=== PATIENT | male | born 1940 | race Caucasian/White ===

== ENCOUNTER 2020-05-04 07:38 | Emergency (ER) | payer MEDICARE, MEDICAID, SELFPAY ==
[2020-05-04 07:38] VITALS: BP 149/74; PULSE 67; RESP 17; TEMP 36.7; O2SAT 99; BMI 26.6
--- NOTE | 2020-05-04 08:02 | HMH.EDWNDL ---
ED Disposition Clinical Impression: Varicocele Disposition: Home, Self-Care Condition on Discharge: Good Instructions: DI for Laceration Repair -- Simple Additional Instructions: suture out in a few days Referrals: PCP,Mary [Primary Care Provider] - - Critical Care Critical Care Time: No Attestation: On 05/04/20, the high probability of a clinically significant, sudden or life threatening deterioration of the following system(s) required my full and direct attention, intervention and personal management. The time I documented below is in addition to time spent performing reported procedures but includes the following listed in this critical care notation. Medical Decision Making - Medical Records Medical records reviewed: Yes: I reviewed the patient's medical records. - Mario Alberto Inquiry Pt receiving controlled substance: No Vital Signs: 05/04/20 07:38 Temperature 98.0 F Temperature Source Oral Pulse Rate [Left Radial] 67 Respiratory Rate 17 Blood Pressure [Right Arm] 149/74 H Blood Pressure Mean [Right Arm] 99 Blood Pressure Source [Right Arm] Automatic Cuff Blood Pressure Position [Right Arm] Sitting 02 Sat by Pulse Oximetry 99 Oxygen Delivery Method Room Air Wound/Laceration HPI - General Chief Complaint: Extremity Problem,Nontraumatic Stated Complaint: Bleeding Time Seen by Provider: 05/04/20 07:50 Mode of Arrival: EMS Source of Information: Patient, EMS, Medical Record Limitations: No Limitations Description of Symptoms (Recalled from ER Triage Doc. by RN): c/o dialysis fistual bleeding that started last night after he took a shower. States he got it to stop and then it started back this am. - History of Present Illness HPI narrative: bleeding from rt upper arm after dialysis- he had no bleeding till last pm Onset (ago): day(s) Extremity Location: Right: forearm Place: home Context: other (bleeding from prob variocele) Associated symptoms: none - Related Data Allergies Allergy/AdvReac Type Severity Reaction Status Date / Time NO KNOWN ALLERGIES Allergy Uncoded 08/02/17 15:26 [facility] History - Hepatitis A Screen Drug use history?: No High risk sexual behaviors?: No History of sexually transmitted infection?: No Currently employed?: No Childcare worker?: No Do you have indoor plumbing?: Yes Do you have electricity?: Yes Attestation statement:: This patient has been screened for Hepatitis A risk factors. I have reviewed the patient's past medical history: Yes Medical History: Denies:: Diabetes Mellitus Type 1, Diabetes Mellitus Type 2 - Social History Alcohol Intake: never Occupational Status: retired ROS Obtained: Yes All systems reviewed & no additional complaints - Constitutional Constitutional: Denies fever(s) - Eyes Eyes: Denies change in vision - ENT Ears, Nose, Mouth, and Throat: Denies sore throat - Cardiovascular Cardiovascular: Denies chest pain - Respiratory Respiratory: No dyspnea - Gastrointestinal Gastrointestingal: Denies: abdominal pain - Genitourinary Male Genitourinary: Denies hematuria - Musculoskeletal Musculoskeletal: Denies joint pain - Integumentary/Breasts Skin/Breast: Denies rash - Neurologic Neurologic: Denies seizure-like activity Physical Exam - General General appearance: alert - Head Head exam: normocephalic - Eye Eye exam: Present: PERRL, EOMI. Absent: scleral icterus - ENT ENT exam: Present: mucous membranes moist - Neck Neck exam: Present: trachea midline - Respiratory Respiratory exam: Absent: respiratory distress - Cardiovascular Cardiovascular exam: Present: regular rate - Extremities Exam Extremities exam: Present: full ROM - Neurological Exam Neurological exam: Present: alert, oriented X3, CN II-XII intact - Psychiatric Psychiatric exam: Present: normal affect - Skin Skin exam: Present: other (small bleeding variocele rt upper ext ) Procedures - Laceration
--- NOTE | 2020-05-04 08:11 | PC.NURSE ---
Wound dressed per MD's verbal orders.
[2020-05-04 08:12] VITALS: BP 126/64; PULSE 68; O2SAT 96
[2020-05-04 08:15] VITALS: BP 126/64; PULSE 68; RESP 19; TEMP 36.7; O2SAT 98
== END 2020-05-04 08:20 | disposition home or self-care (01) ==
PROVIDERS: Emergency Provider Emergency Medicine; PCP Internal Medicine Adolescent Medicine
DX: T82.838A Hemorrhage due to vascular prosthetic devices, implants and grafts, initial encounter (principal)
CPT/HCPCS: 12001; 99282

== ENCOUNTER 2020-05-11 09:43 | Emergency (ER) | payer MEDICARE, MEDICAID, SELFPAY ==
[2020-05-11] VITALS (24 sets, daily range): BP systolic 91–152; BP diastolic 47–97; PULSE 18–84; RESP 14–22; TEMP 36.7; O2SAT 93–100; BMI 24.0
--- NOTE | 2020-05-11 09:58 | XR_ITS ---
PROCEDURE: XR HUMERUS RT CLINICAL INDICATION: fall Posttraumatic pain COMPARISON: CR XR SHOULDER RT MIN 2V from 05/11/2020 CR XR CHEST PORTABLE from 05/11/2020 FINDINGS: The humerus has an unremarkable appearance with no evidence of fracture or dislocation. Surgical clips are present from prior fistula placement in the forearm. Minimally displaced fracture involves the distal aspect of the clavicle with minimal superior displacement of the distal fracture fragment. The glenohumeral joint is unremarkable. There is mild subacromial stenosis. Or the medial aspect of the clavicle is not well delineated with suggestion of erosive change involving the medial aspect of the clavicle. CT of the chest may confirm this finding. IMPRESSION: 1. Unremarkable humerus. 2. Minimally displaced fracture of the distal clavicle. 3. The medial aspect of the clavicle is not well delineated with suggestion of erosion at the medial clavicle. CT may confirm. There are no old exams available for comparison. Dictated by: Olvin Kincaid MD 05/11/2020 11:54 Olvin Kincaid MD in [place] 05/11/2020 11:54
--- NOTE | 2020-05-11 10:01 | XR_ITS ---
PROCEDURE: XR CHEST PORTABLE CLINICAL HISTORY: sob COMPARISON: No exams were available for comparison FINDINGS: The cardiomediastinal silhouette and pulmonary vascularity are within normal limits. The right hemidiaphragm is elevated. Vas-Cath is present from left IJ approach with tip in the region of the SVC. The medial aspect of the right clavicle is missing suggesting underlying lytic lesion or old injury. There is a minimally displaced fracture of the distal aspect of the clavicle on the right. IMPRESSION: 1. Right distal clavicular fracture. 2. Erosive change of the medial aspect of the right clavicle. Consider CT for further evaluation Dictated by: Olvin Kincaid MD 05/11/2020 11:56 Olvin Kincaid MD in [facility] 05/11/2020 11:56
--- NOTE | 2020-05-11 10:09 | ECG_ITS ---
APPROVED REPORT Exam: Resting ECG HR:76 bpm ECG Measurements Heart Rate 76 AXES WA 182 P 38 QRSd 112 QRS -59 QT 426 T 93 QTc 479 <Conclusion> Normal sinus rhythm Left anterior fascicular block Nonspecific T wave abnormality Prolonged QT Abnormal ECG Electronically signed by : Rj Du, 05/12/2020 15:39:18
--- NOTE | 2020-05-11 10:18 | HMH.EDGENADL ---
ED Disposition Clinical Impression: Lytic lesion of bone on x-ray, Muscle twitching, New onset seizure Fracture of right clavicle Qualifiers: Encounter type: initial encounter Clavicle location: lateral end Fracture type: closed Fracture alignment: displaced Qualified Code(s): S42.031A - Displaced fracture of lateral end of right clavicle, initial encounter for closed fracture Chronic renal failure Qualifiers: Chronic kidney disease stage: unspecified stage Qualified Code(s): N18.9 - Chronic kidney disease, unspecified Disposition: Home, Self-Care Condition on Discharge: Fair Additional Instructions: Dialysis tomorrow as scheduled. Stop taking [place] (hydrocodone acetaminophen). Sling as needed for right shoulder pain. Follow-up with orthopedics, Dr. Quijano, call for appointment. Referrals: PCP,No [Non-Staff] - Forms: Transfer Record - ED - Critical Care Critical Care Time: No Attestation: On 05/11/20, the high probability of a clinically significant, sudden or life threatening deterioration of the following system(s) required my full and direct attention, intervention and personal management. The time I documented below is in addition to time spent performing reported procedures but includes the following listed in this critical care notation. Medical Decision Making - Medical Records Medical records reviewed: Yes: I reviewed the patient's medical records. - Mario Alberto Inquiry Pt receiving controlled substance: No Vital Signs: 05/11/20 09:44 05/11/20 10:21 05/11/20 10:48 Temperature 98.1 F Temperature Source Oral Pulse Rate [Radial] 80 74 73 Respiratory Rate 20 16 16 Blood Pressure [Right Arm] 131/77 122/69 127/71 Blood Pressure Mean [Right Arm] 95 86 89 Blood Pressure Source [Right Arm] Automatic Cuff Automatic Cuff Blood Pressure Position [Right Arm] Sitting Supine 02 Sat by Pulse Oximetry 97 100 99 Oxygen Delivery Method Nasal Cannula Oxygen Flow Rate (LPM) 4 05/11/20 11:00 05/11/20 11:49 05/11/20 12:49 Temperature Temperature Source Pulse Rate [Radial] 76 75 79 Respiratory Rate 20 14 18 Blood Pressure [Right Arm] 117/97 H 117/97 H 129/73 Blood Pressure Mean [Right Arm] 103 103 91 Blood Pressure Source [Right Arm] Automatic Cuff Automatic Cuff Automatic Cuff Blood Pressure Position [Right Arm] Sitting Sitting Sitting 02 Sat by Pulse Oximetry 100 100 100 Oxygen Delivery Method Room Air Room Air Room Air Oxygen Flow Rate (LPM) 05/11/20 13:29 05/11/20 14:30 05/11/20 15:00 Temperature Temperature Source Pulse Rate [Radial] 74 77 75 Respiratory Rate 18 22 Blood Pressure [Right Arm] 124/82 138/74 127/73 Blood Pressure Mean [Right Arm] 96 95 91 Blood Pressure Source [Right Arm] Automatic Cuff Automatic Cuff Blood Pressure Position [Right Arm] Sitting Sitting Sitting 02 Sat by Pulse Oximetry 98 97 Oxygen Delivery Method Oxygen Flow Rate (LPM) 05/11/20 15:25 05/11/20 16:09 05/11/20 16:30 Temperature Temperature Source Pulse Rate [Radial] 84 74 73 Respiratory Rate Blood Pressure [Right Arm] 152/80 H 100/51 L 94/52 L Blood Pressure Mean [Right Arm] 104 67 66 Blood Pressure Source [Right Arm] Blood Pressure Position [Right Arm] Sitting Sitting Sitting 02 Sat by Pulse Oximetry Oxygen Delivery Method Oxygen Flow Rate (LPM) 05/11/20 17:05 05/11/20 17:30 05/11/20 18:00 Temperature Temperature Source Pulse Rate [Radial] 67 71 68 Respiratory Rate 20 Blood Pressure [Right Arm] 91/49 L 96/47 L 101/63 L Blood Pressure Mean [Right Arm] 63 63 75 Blood Pressure Source [Right Arm] Automatic Cuff Blood Pressure Position [Right Arm] Sitting Sitting Sitting 02 Sat by Pulse Oximetry 98 Oxygen Delivery Method Nasal Cannula Oxygen Flow Rate (LPM) 2 - Lab Data Lab results reviewed: Yes: I reviewed the patient's lab results. Lab Results 05/11/20 10:05: WBC 9.5, RBC 3.60 L, Hgb 13.0 L, Hct 40.5 L, MCV 112.5 H, MCH 36
[2020-05-11 10:32] LABS: Basophils # 0.1 K/mm3 (0-0.2); Basophils % 0.6 % (0.1-2.0); Eosinophils # 0.4 K/mm3 (0.0-0.4); Eosinophils % 3.7 % (0.1-12.0); Hematocrit 40.5 % (42.0-52.0); Lymphocytes # 0.4 K/mm3 (0.7-4.5); Lymphocytes % 4.7 % (10-50); Mean Corpuscular Volume 112.5 fl (80-94); Mean Platelet Volume 9.3 fl (7.4-10.4); Monocytes % 10.4 % (1.7-9.3); Neutrophils # 7.7 K/mm3 (1.8-7.8); Neutrophils % 80.6 % (37.0-80.0); Platelet Count 149 K/mm3 (142-424); Red Cell Distribution Width 16.9 % (11.5-17.5); White Blood Count 9.5 K/mm3 (4.8-10.8)
[2020-05-11 10:40] LABS: Chloride 89 mmol/L (98-107)
[2020-05-11 10:41] LABS: Potassium 4.7 mmoL/L (3.5-5.1); Sodium 134 mmol/L (136-145)
[2020-05-11 10:43] LABS: Creatinine Clearance Estimated 4 mL/min (50-200); Estimated Glomerular Filt Rate 4 ml/min (>60); GFR (African American) 5 ML/MIN (>60)
[2020-05-11 10:44] LABS: Anion Gap 21.7 mEq/L (5-15); Calcium 9.7 mg/dl (8.4-10.2); Carbon Dioxide 28 mmol/L (22.0-30.0); Glucose 98 mg/dl (74-100)
[2020-05-11 10:46] LABS: Blood Urea Nitrogen 78 mg/dl (9-20)
[2020-05-11 10:50] LABS: Albumin Level 3.9 g/dl (3.5-5.0); Alkaline Phosphatase 79 U/L (38-126); Aspartate Amino Transferase 35 U/L (17-59); Bilirubin,Direct 0.5 mg/dl (0.0-0.4); Bilirubin,Indirect 0.2 mg/dL (0.0-0.9); Bilirubin,Total 0.7 mg/dl (0.2-1.3); Bilirubin,Unconjugated 0.2 mg/dL (0.0-1.1); Lactic Acid 1.2 mmol/L (0.7-2.1); Total Protein,Serum 6.7 g/dl (6.3-8.2)
[2020-05-11 10:53] LABS: NT Pro Brain Natriuretic Pep. 6800 pg/mL (0-450)
[2020-05-11 10:56] LABS: Troponin I 0.04 ng/ml (0.00-0.034)
[2020-05-11 11:12] LABS: Alanine Aminotransferase < 4 U/L (12-78)
--- NOTE | 2020-05-11 12:09 | CT_ITS ---
PROCEDURE: CT SHOULDER RT WO CON CLINICAL HISTORY: fall Posttraumatic pain COMPARISON: CR XR SHOULDER RT MIN 2V from 05/11/2020 TECHNIQUE: Axial images obtained with sagittal and coronal reformats. All CT scans at the facility use one or more dose reduction, viz: automated exposure control, ma/kV adjustment per patient size (including targeted exams where dose is matched to indication, i.e. head), or iterative reconstruction technique. FINDINGS: There is a minimally displaced comminuted fracture involving the distal aspect of the clavicle 2 cm proximal to the acromioclavicular joint with mild superior displacement of the distal fracture fragment by 4 mm. The proximal humerus shows no acute finding. A subchondral cyst involves the humeral head measuring approximately 12 mm. There is a destructive lesion involving the medial aspect of the right clavicle with associated soft tissue mass with bony destruction and pathologic fracture with some anterior and inferior displacement of the distal fracture fragment. IMPRESSION: 1. Minimally displaced fracture involves the distal aspect of the clavicle. 2. Destructive lesion with pathologic fracture involves the proximal aspect of the clavicle. There is inferior and anterior displacement of the distal fracture fragment. This could be due to neoplasm or osteomyelitis. Dictated by: Olvin Kincaid MD 05/11/2020 13:31 Olvin Kincaid MD in [facility] 05/11/2020 13:32
--- NOTE | 2020-05-11 12:09 | CT_ITS ---
PROCEDURE: CT CERVICAL SPINE WO CON CLINICAL INDICATION: fall Neck injury with pain, contusion/abrasion or hematoma, cervical sprain/strain COMPARISON: No exams were available for comparison TECHNIQUE: Axial images obtained with sagittal and coronal reformats. All CT scans at the facility use one or more dose reduction, viz: automated exposure control, ma/kV adjustment per patient size (including targeted exams where dose is matched to indication, i.e. head), or iterative reconstruction technique. Axial spiral CT scanning performed of the cervical spine beginning at the base of the skull and continuing to the upper T-spine. 3-D multiplanar reconstruction with 3-D manipulation of volumetric data set in image rendering was completed by the radiologist and/or technologist with the supervision of the radiologist on independent workstation. FINDINGS: There is normal alignment. No acute fracture or dislocation is evident. There is multilevel cervical spondylosis. C2-C3: Degenerative disc disease with mild left-sided foraminal narrowing. C3-C4: Degenerate disc disease with facet and uncovertebral hypertrophy with mild left-sided foraminal narrowing. C4-C5: Mild degenerative disc disease. C5-C6: Severe degenerative disc disease with endplate hypertrophic change and sclerosis of the endplates with bilateral foraminal narrowing slightly greater on the right with mild right lateral recess narrowing. C6-C7: Degenerate disc disease with endplate sclerotic changes. C7-T1: Unremarkable. Images of the lung apices demonstrates centrilobular and paraseptal emphysema with pulmonary fibrosis. There is destruction of the medial head of the clavicle on the right. Please see shoulder CT report for further description IMPRESSION: 1. No acute fracture of the cervical spine. 2. Multilevel cervical spondylosis as detailed above. 3. Destructive lesion of the medial head of the right clavicle Dictated by: Olvin Kincaid MD 05/11/2020 13:25 Olvin Kincaid MD in [facility] 05/11/2020 13:25
--- NOTE | 2020-05-11 12:09 | CT_ITS ---
PROCEDURE: CT HEAD/BRAIN WO CON CLINICAL INDICATION: fall Head injury with headache/pain, contusion, abrasion or hematoma COMPARISON: No exams were available for comparison TECHNIQUE: Axial images obtained. All CT scans at the facility use one or more dose reduction, viz: automated exposure control, ma/kV adjustment per patient size (including targeted exams where dose is matched to indication, i.e. head), or iterative reconstruction technique. FINDINGS: No acute intracranial hemorrhage or midline shift. There is prominent subdural space on the left in the frontal area and parietal region consistent with left-sided subdural hygroma. No acute subdural hemorrhage. There is also mild prominence of the subdural space middle cranial fossa anterior to the temporal lobes which may be due to chronic subdural hygromas or temporal atrophy. There is mild diffuse atrophy. No hydrocephalus. No acute calvarial fracture IMPRESSION: 1. Left-sided subdural hygroma and possible subdural hygromas in the middle cranial fossa is anteriorly. No acute intracranial or subdural hemorrhage. 2. Mild diffuse cerebral atrophy Dictated by: Olvin Kincaid MD 05/11/2020 13:21 Olvin Kincaid MD in [facility] 05/11/2020 13:21
--- NOTE | 2020-05-11 12:43 | PC.NURSE ---
PT GONE TO CT
[2020-05-11 12:55] LABS: Magnesium 2.4 mg/dl (1.6-2.3)
--- NOTE | 2020-05-11 13:48 | PC.NURSE ---
PT HAS SKIN TEAR TO UPPER ARM BANDAGE APPLIED AT HOME IT IS STUCK WATER APPLIED TO DRESSING
--- NOTE | 2020-05-11 14:05 | PC.NURSE ---
pt given turkey sandwich.
[2020-05-11 14:49] LABS: Troponin I 0.04 ng/ml (0.00-0.034)
--- NOTE | 2020-05-11 15:15 | PC.NURSE ---
sling applied to rt arm assisting pt up to wheelchair for d/c home. pt sitting in wc eyes deviated to rt pt started with tonic/clonic movements lasting approx 2mins. pt was placed in bed with assist of several staff. pt bit his tongue
--- NOTE | 2020-05-11 15:18 | PC.NURSE ---
at bedside pt awake follows commands, slow to respond. pt confused to time and place. pt's son at bedside. seizure pads applied to stretcher.
[2020-05-11 15:21] LABS: Erythrocyte Sedimentation Rate 70 mm/hr (0-20)
--- NOTE | 2020-05-11 15:29 | CT_ITS ---
PROCEDURE: CT HEAD/BRAIN WO CON CLINICAL INDICATION: seizure COMPARISON: CT CT HEAD/BRAIN WO CON from 05/11/2020 TECHNIQUE: Axial images obtained. All CT scans at the facility use one or more dose reduction, viz: automated exposure control, ma/kV adjustment per patient size (including targeted exams where dose is matched to indication, i.e. head), or iterative reconstruction technique. FINDINGS: There is diffuse cerebral atrophy with left-sided subdural hygroma once again noted not significantly changed measuring 1.2 cm in thickness in the sylvian region. There is minimal midline shift to the right of approximately 3 mm. No acute intracranial hemorrhage. No acute calvarial fracture. Overall no significant change from previous study of the same day. Fluid is also present along the falx on the right and could be due to a right-sided subdural hygroma at this area. IMPRESSION: No change with no acute finding. Atrophy with left subdural hygroma and possible right para falcine subdural hygroma with minimal midline shift to the right Dictated by: Olvin Kincaid MD 05/12/2020 06:32 Olvin Kincaid MD in [facility] 05/12/2020 06:32
--- NOTE | 2020-05-11 15:29 | PC.NURSE ---
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
--- NOTE | 2020-05-11 15:35 | PC.NURSE ---
spoke with Ahmet in pharmacy r/t Keppra dosing per ER request. Ahmet stated to do Keppra 500 mg q12h and to keep an eye on kidney function. Notified ER
--- NOTE | 2020-05-11 16:20 | PC.NURSE ---
pt resting easily aroused. son at bedside
--- NOTE | 2020-05-11 17:49 | PC.NURSE ---
DR Huitron spoke with Dr Aldana at [facility].
--- NOTE | 2020-05-11 18:08 | PC.NURSE ---
Dr Huitron speaking with Dr Cavazos
--- NOTE | 2020-05-11 18:09 | PC.NURSE ---
pt awake alert oriented x 3. pt offers no c/o at present.
--- NOTE | 2020-05-11 18:39 | PC.NURSE ---
pt placed in hospital bed for comfort
--- NOTE | 2020-05-11 19:06 | PC.NURSE ---
received report from day nurse at this time.
--- NOTE | 2020-05-11 20:30 | PC.NURSE ---
called [facility] to check the status of the bed assignment. No bed available at this time
--- NOTE | 2020-05-11 22:04 | PC.NURSE ---
Pt has no complaints at this time. Pt repositions self. Seizure pads in place.
[2020-05-11 23:39] LABS: POC Glucose,Bedside 86 (70-110)
--- NOTE | 2020-05-11 23:44 | PC.NURSE ---
Awoke patient to assess. Existing dressing on right lower arm was seeping. Old dressing was removed and new dressing was applied per RN. Pt does not have any needs at this time. Call light in reach and seizure pads are in place.
--- NOTE | 2020-05-11 23:50 | PC.NURSE ---
re assessed per this nurse. C:no uncontrolled bleeding or hemorrhage A: airway patent, no signs of vomitus,loose teeth, tongue obstruction,nor secretions in excess B: breathing respirations e/u; equal rise and fall of chest; skin color pink,warm and dry; noted draining wound to rue wrapped in bandages. C: pulses palpable and equal centrally vs periph; udall in place to left anterior chest wall. D: Alert, verbally responsive with clear speech. GCS 15. No confusion evident. No hearing/visual deficits noted. E: removed bandage to rue: noted incision site to be with edges well appromated, ty intact. moderate amount of serosanguinous drainage noted.pt tolerated removal well. cleaned entire arm with NS, applied non-adherent dressings and re-wrapped wound, taping for securement. F:Family has went home for the night. VS: 110/66-72*96%/2lpm. 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 pt was then placed in [facility] for transfer to [facility] in [place], [place]. Discussed possibility of going home and determined it is not possible at this time. Pt requires continued monitoring. aware. No orders voiced.
--- NOTE | 2020-05-12 01:06 | PC.NURSE ---
received ph call from rebecca at [facility]; no beds available at this time.
[2020-05-12 01:15] VITALS: BP 114/63; PULSE 71; RESP 18; O2SAT 99
[2020-05-12 02:53] VITALS: BP 95/47; PULSE 75; RESP 18; O2SAT 99
--- NOTE | 2020-05-12 03:22 | PC.NURSE ---
[facility] called with a bed assignment. RN calling report at this time and transport is being called.
[2020-05-12 03:32] VITALS: BP 107/63; PULSE 73; RESP 18; TEMP 36.7; O2SAT 99
--- NOTE | 2020-05-12 03:44 | PC.NURSE ---
call placed to [facility] [phone] and informed of transfer.
== END 2020-05-12 04:12 | disposition home or self-care (01) ==
PROVIDERS: Emergency Provider Emergency Medicine; PCP Internal Medicine Adolescent Medicine
DX: M89.9 Disorder of bone, unspecified (principal); R25.3 Fasciculation; N18.9 Chronic kidney disease, unspecified; S42.001A Fracture of unspecified part of right clavicle, initial encounter for closed fracture; R56.9 Unspecified convulsions; R06.02 Shortness of breath; W19.XXXA Unspecified fall, initial encounter; Z79.899 Other long term (current) drug therapy
CPT/HCPCS: 70450; 71045; 72125; 73030; 73060; 73200; 80048; 80076; 82962; 83605; 83735; 83880; 84484; 85025; 85651; 86140; 87040; 93005; 96365; 96366; 96375; 99285; J1953

== ENCOUNTER → 2022-02-25 20:08 | Outpatient (CLI) | payer MEDICARE, MEDICAID, SELFPAY ==
[2022-02-25 23:20] LABS: Alanine Aminotransferase 19 U/L (12-78); Albumin Level 4.4 g/dl (3.5-5.0); Albumin/Globulin Ratio 1.2 (1.1-1.8); Alkaline Phosphatase 103 U/L (38-126); Anion Gap 20.9 mEq/L (5-15); Aspartate Amino Transferase 34 U/L (17-59); Bilirubin,Total 0.2 mg/dl (0.2-1.3); Blood Urea Nitrogen 49 mg/dl (9-20); Calcium 9.9 mg/dl (8.4-10.2); Carbon Dioxide 31 mmol/L (22.0-30.0); Chloride 92 mmol/L (98-107); Chol/HDL Ratio 2.5 (1-3.5); Cholesterol 119 mg/dl (140-200); Estimated Glomerular Filt Rate 8 ml/min (>60); GFR (African American) 9 ML/MIN (>60); Globulin 3.7 g/dL (1.3-3.2); Glucose 80 mg/dl (74-100); HDL Cholesterol 48 mg/dl (40-60); Potassium 4.9 mmoL/L (3.5-5.1); Sodium 139 mmol/L (136-145); Total Protein,Serum 8.1 g/dl (6.3-8.2); Triglycerides 89 mg/dl (30-150); VLDL Cholesterol 18 mg/dL (0-40)
[2022-02-25 23:31] LABS: Direct LDL Cholesterol 50.56 mg/dL (100-129)
== END ==
PROVIDERS: PCP Internal Medicine Adolescent Medicine; Visit Provider Internal Medicine Adolescent Medicine
DX: Z79.899 Other long term (current) drug therapy (principal)
CPT/HCPCS: 80053; 80061; 84443

== ENCOUNTER → 2022-05-06 07:05 | Outpatient (CLI) | payer MEDICARE, MEDICAID, SELFPAY | PROVIDERS: PCP Internal Medicine Adolescent Medicine; Visit Provider Internal Medicine Adolescent Medicine | DX: E03.9 Hypothyroidism, unspecified (principal) | CPT/HCPCS: 84443 ==